=== PATIENT | female | born 1995 | race Caucasian/White ===

== ENCOUNTER 2019-12-30 08:44 | Day surgery (SDC) | payer OTHER, SELFPAY ==
[~2019-12-30] VITALS: Ht 157.5 cm; Wt 72.6 kg
[2019-12-30] MEDS ORDERED: fentaNYL citrate 0.05 MG/ML VIAL ONE (10:11)
[2019-12-30] MEDS ORDERED: diphenhydrAMINE 50 MG/ML VIAL ONE (10:11)
[2019-12-30] MEDS ORDERED: MIDAZOLAM 5 MG/5 ML VIAL ONE (10:12)
[2019-12-30] MEDS ORDERED: LIDOCAINE 2% 100 MG/5 ML UJET TP ONE (10:12)
[2019-12-30] MEDS ORDERED: fentaNYL citrate 0.05 MG/ML VIAL IVP ONE (12:35)
[2019-12-30] MEDS ORDERED: MIDAZOLAM 2 MG/2 ML VIAL IVP ONE (12:35)
== END 2019-12-30 11:20 | disposition home or self-care (01) ==
LOC: MDS 08:44 → MMU 08:44 → MDS 11:20
PROVIDERS: ATTEND Internal Medicine Gastroenterology
DX: K62.5 Hemorrhage of anus and rectum (principal); K51.811 Other ulcerative colitis with rectal bleeding; Z20.828 Contact with and (suspected) exposure to other viral communicable diseases; Z79.899 Other long term (current) drug therapy
CPT/HCPCS: 45380; 81025; J2250; J3010; U0003; J1200

== ENCOUNTER 2020-02-08 07:04 | Day surgery (SDC) | payer OTHER, SELFPAY ==
[~2020-02-08] VITALS: Ht 157.5 cm; Wt 69.9 kg
[2020-02-08] MEDS ORDERED: fentaNYL citrate 0.05 MG/ML VIAL ONE (07:52)
[2020-02-08] MEDS ORDERED: MIDAZOLAM 2 MG/2 ML VIAL ONE (07:52)
[2020-02-08] MEDS ORDERED: diphenhydrAMINE 50 MG/ML VIAL ONE (07:58)
[2020-02-08] MEDS ORDERED: fentaNYL citrate 0.05 MG/ML VIAL IVP ONE (09:00)
[2020-02-08] MEDS ORDERED: MIDAZOLAM 2 MG/2 ML VIAL IVP ONE (09:00)
== END 2020-02-08 09:50 | disposition home or self-care (01) ==
LOC: MDS 07:04 → MMU 07:04 → MDS 09:50
PROVIDERS: ATTEND Internal Medicine Gastroenterology
DX: D50.0 Iron deficiency anemia secondary to blood loss (chronic) (principal); K62.5 Hemorrhage of anus and rectum; K51.811 Other ulcerative colitis with rectal bleeding; Z79.899 Other long term (current) drug therapy; Z20.828 Contact with and (suspected) exposure to other viral communicable diseases
CPT/HCPCS: 43235; 81025; J2250; J3010; U0003; J1200

== ENCOUNTER 2020-05-31 09:30 | Outpatient (CLI) | payer OTHER, SELFPAY | END 2020-05-31 23:59 | disposition home or self-care (01) | LOC: MLB 09:30 → EDSTATUS 06-01 14:10 | PROVIDERS: ATTEND Internal Medicine Gastroenterology | DX: Z01.812 Encounter for preprocedural laboratory examination (principal); Z20.822 Contact with and (suspected) exposure to COVID-19; K51.90 Ulcerative colitis, unspecified, without complications; K62.5 Hemorrhage of anus and rectum ==

== ENCOUNTER 2020-06-15 09:29 | Day surgery (SDC) | payer OTHER, SELFPAY ==
[~2020-06-15] VITALS: Ht 162.6 cm; Wt 63.5 kg
[2020-06-15] MEDS ORDERED: MIDAZOLAM 5 MG/5 ML VIAL ONE (12:12)
[2020-06-15] MEDS ORDERED: LIDOCAINE 2% 100 MG/5 ML UJET TP ONE (12:13)
== END 2020-06-15 13:12 | disposition home or self-care (01) ==
LOC: MDS 09:29 → MMU 10:35 → MDS 13:12
PROVIDERS: ATTEND Internal Medicine Gastroenterology
DX: K62.5 Hemorrhage of anus and rectum (principal); K51.90 Ulcerative colitis, unspecified, without complications; K52.9 Noninfective gastroenteritis and colitis, unspecified; Z79.899 Other long term (current) drug therapy
CPT/HCPCS: 45330; 88305; 88342; J2250

== ENCOUNTER 2022-01-31 08:13 | Day surgery (SDC) | payer MEDICAID ==
[~2022-01-31] VITALS: Ht 160 cm; Wt 81.6 kg
[2022-01-31] MEDS ORDERED: SIMETHICONE 40 MG/0.6 ML ONE (08:15)
[2022-01-31] MEDS ORDERED: diphenhydrAMINE 50 MG/ML VIAL ONE (08:54)
[2022-01-31] MEDS ORDERED: fentaNYL citrate 0.05 MG/ML VIAL ONE (08:54)
[2022-01-31] MEDS ORDERED: MIDAZOLAM 5 MG/5 ML VIAL ONE (08:55)
[2022-01-31] MEDS: MIDAZOLAM 2 MG/2 ML VIAL IVP ONE (09:23)
[2022-01-31] MEDS: fentaNYL citrate 0.05 MG/ML VIAL IVP ONE (09:24)
[2022-01-31] MEDS: LIDOCAINE 2% 100 MG/5 ML UJET TP ONE (09:29)
== END 2022-01-31 10:36 | disposition home or self-care (01) ==
LOC: MDS 08:13 → MMU 08:14 → MDS 10:36
PROVIDERS: ATTEND Internal Medicine Gastroenterology
DX: K51.90 Ulcerative colitis, unspecified, without complications (principal); Z80.3 Family history of malignant neoplasm of breast; Z79.899 Other long term (current) drug therapy; Z20.822 Contact with and (suspected) exposure to COVID-19
CPT/HCPCS: 45331; 87426; J2250; J3010; J1200